=== PATIENT | female | born 1930 | race Caucasian/White ===

== ENCOUNTER 2016-06-28 15:52 | Emergency (ER) | payer MEDICARE ==
--- NOTE | 2016-06-28 17:03 | Emergency Department Record ---
History of Present Illness - General Chief complaint: Eye Problem Stated complaint: PRESSURE ON RT EYE Time Seen by Provider: 06/28/16 16:13 Source: Patient Mode of Arrival: Ambulatory Limitations: No limitations - History of Present Illness Initial comments: pt has had diplopia for 3 days. she has had it in the past but it has always gone away in a short time. this time it has not gone away. pt went to telehealth case manager this afternoon and was told her eyes were fine and that she needed to come to the emergency department. pt states if she covers either eye she no longer has double vision. she has no other symptoms. her vision was 20/40 in each eye. she has a hx of glaucoma MD chief complaint: Vision change Onset/Timin -: Days(s) Onset Description: Sudden Location: Both eyes Place: Home Eye Symptoms: Blurry vision, Other Severity: Moderate Consistency: Constant Context: History of glaucoma Associated Symptoms: None Treatments Prior to Arrival: Other - Related Data Home Medications Medication Instructions Recorded Confirmed Last Taken Amlodipine Besylate [Norvasc] 5 mg PO DAILY 06/28/16 06/28/16 06/28/16 Ascorbic Acid [Vitamin C] 1,000 mg PO DAILY 06/28/16 06/28/16 06/28/16 Calcium Carbonate [Calcium] 600 mg PO DAILY 06/28/16 06/28/16 06/28/16 Cholecalciferol (Vitamin D3) 2,000 unit PO DAILY 06/28/16 06/28/16 06/28/16 [Vitamin D3] Latanoprost 0.005% Opth Eva 2.5 ml OP DAILY 06/28/16 06/28/16 06/27/16 [Xalatan] Losartan Potassium [Cozaar] 50 mg PO DAILY 06/28/16 06/28/16 06/28/16 Simvastatin [Zocor] 20 mg PO DAILY 06/28/16 06/28/16 06/28/16 Allergies Allergy/AdvReac Type Severity Reaction Status Date / Time celecoxib [From Celebrex] Allergy RASH Verified 06/28/16 16:07 clindamycin HCl Allergy RASH Verified 06/28/16 16:07 [From Cleocin] clindamycin palmitate HCl Allergy RASH Verified 06/28/16 16:07 [From Cleocin] clindamycin phosphate Allergy RASH Verified 06/28/16 16:07 [From Cleocin] hydrocodone Allergy NAUSEA Verified 06/28/16 16:07 hydroxychloroquine sulfate Allergy RASH Verified 06/28/16 16:07 [From Plaquenil] Iodine and Iodide Containing Allergy RASH Verified 06/28/16 16:04 Produc lidocaine Allergy PT UNSURE Verified 06/28/16 16:07 OF REACTION naloxone HCl [From Talwin NX] Allergy RASH Verified 06/28/16 16:07 Penicillins Allergy RASH Verified 06/28/16 16:07 pentazocine HCl Allergy RASH Verified 06/28/16 16:07 [From Talwin NX] rofecoxib [From Vioxx] Allergy RASH Verified 06/28/16 16:07 aspirin AdvReac NAUSEA Verified 06/28/16 16:07 Travel Screening - Travel/Exposure Within Last 30 Days Have you traveled within the last 30 days?: No - Travel/Exposure Within Last Year Have you traveled outside the [place] in the last year?: No - Additonal Travel Details Have you been exposed to anyone with a communicable illness?: No - Travel Symptoms Symptom Screening: None Review of Systems Reviewed: No additional complaints except as noted below Constitutional: Reports: As per HPI. Denies: Chills, Fever, Malaise, Night sweats, Weakness, Weight change Eyes: Reports: As per HPI. Denies: Eye discharge, Eye pain, Photophobia, Vision change ENT: Reports: As per HPI. Denies: Congestion, Dental pain, Ear pain, Epistaxis , Hearing loss, Throat pain Respiratory: Reports: As per HPI. Denies: Cough, Dyspnea, Hemoptysis, Stridor, Wheezes Cardiovascular: Reports: As per HPI. Denies: Arrhythmia, Chest pain, Dyspnea on exertion, Edema, Murmurs, Orthopnea, Palpitations, Paroxysmal nocturnal dyspnea, Rheumatic Fever, Syncope Endocrine: Reports: As per HPI. Denies: Fatigue, Heat or cold intolerance, Polydipsia, Polyuria Gastrointestinal: Reports: As per HPI. Denies: Abdominal pain, Constipation, Diarrhea, Hematemesis, Hematochezia, Melena, Nausea, Vomiting Genitourinary: Reports: As per HPI. Denies: Abnormal menses, Discharge, Dyspareunia, Dysuria, Frequency, Hematuria, Incontinence, Retention, Urgency Musculoskeletal: Reports: As per HPI. Denies: Arthralgia, Back pain, Gout, Joint swelling, Myalgia, Neck pain Skin: Reports: As per HPI. Denies: Bruising, Change in color, Change in hair/ nails, Lesions, Pruritus, Rash Neurological: Reports: As per HPI. Denies: Abnormal gait, Confusion, Headache, Numbness, Paresthesias, Seizure, Tingling, Tremors, Vertigo, Weakness Psychiatric: Reports: As per HPI. Denies: Anxiety, Auditory hallucinations, Depression, Homicidal thoughts, Suicidal thoughts, Visual hallucinations Hematological/Lymphatic: Reports: As per HPI. Denies: Anemia, Blood Clots, Easy bleeding, Easy bruising, Swollen glands Past Medical History - SOCIAL HISTORY Smoking Status: Never smoker Alcohol Use: None Drug Use: None - RESPIRATORY Hx Respiratory Disorders: No - CARDIOVASCULAR Hx Cardio Disorders: Yes Hx Hypertension: Yes Comment:: high cholesterol - NEURO Hx Neuro Disorders: No - GI Hx GI Disorders: No - Hx Genitourinary Disorders: No - ENDOCRINE Hx Endocrine Disorders: No - MUSCULOSKELETAL Hx Musculoskeletal Disorders: Yes - PSYCH Hx Psych Problems: No - HEMATOLOGY/ONCOLOGY Hx Hematology/Oncology Disorders: Yes Hx Cancer: Yes Family Medical History Any Significant Family History?: No Physical Exam - General General Appearance: Alert, Oriented x3, Cooperative, Mild distress - Head Head exam: Normal inspection - Eye Eye exam: Normal appearance, PERRL, EOMI Pupils: Normal accommodation - ENT ENT exam: Normal exam, Mucous membranes moist, Normal external ear exam, Normal orophraynx Ear exam: Normal external inspection. negative: External canal tenderness Nasal Exam: Normal inspection. negative: Discharge, Sinus tenderness Mouth exam: Normal external inspection, Tongue normal Teeth exam: Normal inspection. negative: Dental caries Throat exam: Normal inspection. negative: Tonsillar erythema, Tonsillar exudate - Neck Neck exam: Normal inspection, Full ROM. negative: Tenderness - Respiratory Respiratory exam: Normal lung sounds bilaterally. negative: Respiratory distress - Cardiovascular Cardiovascular Exam: Regular rate, Normal rhythm, Normal heart sounds - GI/Abdominal GI/Abdominal exam: Soft, Normal bowel sounds. negative: Tenderness - Rectal Rectal exam: Deferred - exam: Deferred - Extremities Extremities exam: Normal inspection, Full ROM, Normal capillary refill. negative: Tenderness - Back Back exam: Reports: Normal inspection, Full ROM. Denies: Muscle spasm, Rash noted, Tenderness - Neurological Neurological exam: Alert, CN II-XII intact, Normal gait, Oriented X3 - Psychiatric Psychiatric exam: Normal affect, Normal mood - Skin Skin exam: Dry, Intact, Normal color, Warm Course Vital Signs 06/28/16 16:13 Temperature 97.7 F Pulse Rate 92 H Respiratory 18 Rate Blood Pressure 120/77 Pulse Ox 98 - Reevaluation(s) Reevaluation #1: 06/28/16 17:08 d/w dr cedillo who examined eyes today and found normal pressures and no deficits 06/28/16 18:25 Reevaluation #2: 06/28/16 18:25 d/w dr negron who suggested patching eye Medical Decision Making - Lab Data Result diagrams: 06/28/16 17:15 06/28/16 17:15 Disposition Disposition: Discharge Clinical Impression: Diplopia Disposition: Home, Self-Care Condition: (1) Good Instructions: Diplopia (ED) Additional Instructions: follow up with dr cedillo in the next 2 weeks. return sooner if worse. wear patch until double vision clears up. Forms: Patient Portal Access
[2016-06-28 17:26] LABS: BASO % 0.4 % (0-6); EOS % 0.2 % (0-6); LYMPH % 25.8 % (16-45); MEAN CELL VOLUME 88.8 fl (81-97); MEAN CORPUSCULAR HEMOGLOBIN 29.6 pg (27-33); MEAN CORPUSCULAR HGB CONC 33.3 g/dl (32-36); MEAN PLATELET VOLUME 9.4 fl (7.4-10.4); MONO % 6.6 % (0-9); PLATELET COUNT 358 K/uL (130-400); RED BLOOD COUNT 4.39 M/uL (3.80-5.40); RED CELL DISTRIBUTION WIDTH 13.2 % (11.5-14.5); WHITE BLOOD COUNT W/O DIFF 9.2 K/uL (4.2-12.2)
[2016-06-28 17:42] LABS: CREATININE 1.1 mg/dL (0.52-1.04)
[2016-06-28 18:02] LABS: ERYTHROCYTE SEDIMENTATION RATE 6 mm/hr (0-30)
--- NOTE | 2016-07-03 09:18 | CT SCAN REPORT ---
EXAM: CT OF THE BRAIN WITHOUT CONTRAST HISTORY: BLURRED VISION. TECHNIQUE: Sequential axial images were obtained from the foramen magnum to the vertex without contrast administration. FINDINGS: The brain volume is normal. No large territorial infarct, hemorrhage , mass effect, or midline shift. No extraaxial fluid collection. The orbits, paranasal sinuses, and mastoid air cells are normal. No depressed skull fracture. IMPRESSION: NEGATIVE CT EXAMINATION OF THE BRAIN. JOB NUMBER: [id number] MTDD
== END 2016-06-28 18:50 | disposition home or self-care (01) ==
LOC: ER 15:52
DX: H53.2 Diplopia (principal)
CPT/HCPCS: 70450; 80048; 85025; 85651; 99283